=== PATIENT | female | born 1955 | race Caucasian/White ===

== ENCOUNTER 2017-05-12 16:29 | Inpatient (IN) | payer OTHER, MEDICARE ==
[2017-05-12 16:51] VITALS: BMI 30.4
[2017-05-13] MEDS: Insulin Lispro (humaLOG) 100 Units/ml Inj SC SCH ×4 (06:46→21:12)
[2017-05-13] MEDS: Pantoprazole 40 mg EC Tab PO SCH (06:53)
[2017-05-13] MEDS: Levothyroxine 112 MCG TAB PO SCH (06:58)
[2017-05-13] MEDS: Cholecalciferol 1,000 INTLU TAB PO SCH (08:13)
[2017-05-13] MEDS: Apap-Butalbital-Caffeine 325-50-40mg Tab PO PRN ×2 (08:13→18:20)
[2017-05-13] MEDS ORDERED: CALCIUM CARBONATE 600 MG PO SCH (09:00)
--- NOTE | 2017-05-13 09:25 | CP.PCM.HP ---
History of Present Illness - History of Present Illness History of Present Illness: 61 yo ,f, PMhx/o HTN, DM2,Hypothyroidism presents to [facility] [place] [facility] for AMS. Patient's daughter reports that she first noticed that her mother was confused and disoriented when she tried to wake her up at 9pm on the evening of admission. Patient works nights at [employer] and was due to work a shift on night of admission. As per daughter, patient's coworker had informed her that the patient was extremely "sleepy" the night prior at work and could not stay awake. Patient had also complained of some dizziness today and a headache a few days ago. Complete ROS and HPI limited due to patient's condition. On admission.CT head showed mixed density acute on subacute right convexity subdural hematoma measuring 1.7 cm with subfalcine herniation and [id number] midline shift. There is mild uncal herniation. There is entrapment of right lateral ventricle and dilatation of left lateral ventricle. Neurosurgery was contacted and the patient underwent emergent craniectomy and evacuation of the subdural hematoma, in which patient tolerated well. Neurology was also consulted and followed patient during hospital course. Patient was placed on Keppra for seizure prophylaxis. Pt transferred to [facility] for PT. Today POD #6 . Patient seen and examined with attending Dr Aniceto arriola. Patient reports feeling weel with occs headache controlled with meds. AAOx3. Denies fever, nausea, vomiting, abd pain, blurry vision, weakness, numbness. PMD: Dr. 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; no drug/ alcohol abuse Meds: pls see chart ALL: denies Present on Admission - Present on Admission Any Indicators Present on Admission: No History of DVT/PE: No History of Uncontrolled Diabetes: No Review of Systems - Neurological Neurological: Headaches Past Patient History - Infectious Disease Hx of Infectious Diseases: None - Past Medical History & Family History Past Medical History?: Yes - Past Social History Smoking Status: Heavy Smoker > 10 Cigarettes Daily - CARDIAC Hx Cardiac Disorders: Yes (ANGINA) Hx Congestive Heart Failure: No Hx Hypertension: Yes - PULMONARY Hx Chronic Obstructive Pulmonary Disease (COPD): No - NEUROLOGICAL Hx Neurological Disorder: No Hx Seizures: No Other/Comment: h/o subdural hematoma - HEENT Hx HEENT Problems: No - RENAL Hx Chronic Kidney Disease: No - ENDOCRINE/METABOLIC Hx Diabetes Mellitus Type 2: Yes Hx Hypothyroidism: Yes (THYROIDECTOMY) - HEMATOLOGICAL/ONCOLOGICAL Hx AIDS: No Hx Human Immunodeficiency Virus (HIV): No - INTEGUMENTARY Hx Dermatological Problems: No - MUSCULOSKELETAL/RHEUMATOLOGICAL Hx Arthritis: Yes (shoulder) Hx Falls: Yes - GASTROINTESTINAL Hx Gastrointestinal Disorders: Yes (HEMORRHOIDS?) - GENITOURINARY/GYNECOLOGICAL Hx Genitourinary Disorders: Yes (2 C/S) - PSYCHIATRIC Hx Psychophysiologic Disorder: Yes (SOCIAL DRINKING AND SMOKES CIGARETTES) Hx Substance Use: No - SURGICAL HISTORY Hx Surgeries: Yes (CS X 2,THYROIDECTMY) Hx Cardiac Catheterization: No Hx Cholecystectomy: Yes Other/Comment: 05/07/2017 - Craniotomy and evacuation of right. subdural hematoma. - ANESTHESIA Hx Anesthesia: Yes Hx Anesthesia Reactions: No Hx Malignant Hyperthermia: No Meds Allergies/Adverse Reactions: Allergies Allergy/AdvReac Type Severity Reaction Status Date / Time No Known Allergies Allergy Verified 05/12/17 23:17 Physical Exam - Constitutional Appears: Well, Non-toxic, No Acute Distress - Head Exam Head Exam: ATRAUMATIC - Eye Exam Eye Exam: Normal appearance Additional comments: normal vision acuity - ENT Exam ENT Exam: Mucous Membranes Moist - Neck Exam Neck exam: Positive for: Normal Inspection - Respiratory Exam Respiratory Exam: Clear to Auscultation Bilateral. absent: Rales, Rhonchi, Wheezes - Cardiovascular Exam Cardiovascular Exam: REGULAR RHYTHM, +S1, +S2 - GI/Abdominal Exam GI & Abdominal Exam: Normal Bowel Sounds, Soft. absent: Guarding, Tenderness - Extremities Exam Extremities exam: Positive for: normal inspection. Negative for: pedal edema - Back Exam Back exam: NORMAL INSPECTION - Neurological Exam Neurological exam: Alert, Oriented x3 - Psychiatric Exam Psychiatric exam: Normal Affect, Normal Mood - Skin Skin Exam: Intact Results - Vital Signs Recent Vital Signs: Last Vital Signs Temp 97.5 F L 05/12/17 22:20 Pulse 71 05/13/17 01:35 Resp 20 05/13/17 01:35 BP 130/71 05/12/17 22:20 Pulse Ox 95 05/13/17 01:35 - Labs Labs: Laboratory Results - last 24 hr 05/13/17 06:15 POC Glucose (mg/dL) 101 Assessment & Plan - Assessment and Plan (Free Text) Plan: Assessment Plan 61 yo ,f, PMhx/o HTN, DM2,Hypothyroidism admitted for right subdural hematoma s/ p s/p craniotomy POD #6 transferred to Acute Rehab for PT 1) Right Subdural Hematoma -s/p craniotomy for right SDH POD #6 doing well, minimal deficits on examination. + functional deficits will PT/OT to continue to help increase functional independence Team conference for d/c planning Pain: controlled Vascular: no evidence of DVT GI: No evidence of constipation or diarrhea -c/w keppra 2) HTN controlled 3) DM Controlled SSI 4) Hypothyroidism -c/w levothryroxin 5) DVT Prophylaxis -scd
--- NOTE | 2017-05-13 09:30 | CP.PCM.CON ---
History of Present Illness - History of Present Illness History of Present Illness: Dr Disla PMR consultation on Jackie Cleveland, born 1955, who has been admitted to [facility] acute rehab following a right SDH with evacuation. Post op doing well. Review of Systems - Constitutional Constitutional: absent: Chills, Excessive Sweating, Headache - EENT Eyes: absent: Change in Vision Ears: absent: Decreased Hearing Nose/Mouth/Throat: absent: Nasal Congestion - Cardiovascular Cardiovascular: absent: Chest Pain - Respiratory Respiratory: absent: Dyspnea - Gastrointestinal Gastrointestinal: absent: Abdominal Pain - Musculoskeletal Musculoskeletal: absent: Arthralgias, Back Pain - Integumentary Integumentary: absent: Bleeding Lesions - Neurological Neurological: absent: Abnormal Movements, Dizziness - Psychiatric Psychiatric: absent: Anxiety Past Patient History - Infectious Disease Hx of Infectious Diseases: None - Past Medical History & Family History Past Medical History?: Yes - Past Social History Smoking Status: Heavy Smoker > 10 Cigarettes Daily Alcohol: None Drugs: Denies Home Situation {Lives}: With Family - CARDIAC Hx Cardiac Disorders: Yes (ANGINA) Hx Congestive Heart Failure: No Hx Hypertension: Yes - PULMONARY Hx Chronic Obstructive Pulmonary Disease (COPD): No - NEUROLOGICAL Hx Neurological Disorder: No Hx Seizures: No Other/Comment: h/o subdural hematoma - HEENT Hx HEENT Problems: No - RENAL Hx Chronic Kidney Disease: No - ENDOCRINE/METABOLIC Hx Diabetes Mellitus Type 2: Yes Hx Hypothyroidism: Yes (THYROIDECTOMY) - HEMATOLOGICAL/ONCOLOGICAL Hx AIDS: No Hx Human Immunodeficiency Virus (HIV): No - INTEGUMENTARY Hx Dermatological Problems: No - MUSCULOSKELETAL/RHEUMATOLOGICAL Hx Arthritis: Yes (shoulder) Hx Falls: Yes - GASTROINTESTINAL Hx Gastrointestinal Disorders: Yes (HEMORRHOIDS?) - GENITOURINARY/GYNECOLOGICAL Hx Genitourinary Disorders: Yes (2 C/S) - PSYCHIATRIC Hx Psychophysiologic Disorder: Yes (SOCIAL DRINKING AND SMOKES CIGARETTES) Hx Substance Use: No - SURGICAL HISTORY Hx Surgeries: Yes (CS X 2,THYROIDECTMY) Hx Cardiac Catheterization: No Hx Cholecystectomy: Yes Other/Comment: 05/07/2017 - Craniotomy and evacuation of right. subdural hematoma. - ANESTHESIA Hx Anesthesia: Yes Hx Anesthesia Reactions: No Hx Malignant Hyperthermia: No Meds Allergies/Adverse Reactions: Allergies Allergy/AdvReac Type Severity Reaction Status Date / Time No Known Allergies Allergy Verified 05/12/17 23:17 - Medications Medications: Current Medications Acetaminophen/Butalbital/Caffeine (Fioricet) 1 tab PO Q4H PRN PRN Reason: Headache Last Admin: 05/13/17 08:13 Dose: 1 tab Calcium Carbonate (Oscal) 500 mg PO BID [facility] Cholecalciferol (Vitamin D) 2,000 intlu PO DAILY [facility] Last Admin: 05/13/17 08:13 Dose: 2,000 intlu Diphenhydramine HCl (Benadryl) 25 mg PO HS PRN PRN Reason: Other Last Admin: 05/13/17 01:27 Dose: 25 mg Insulin Human Lispro (Humalog) 0 units SC ACHS [facility] PRN Reason: Protocol Last Admin: 05/13/17 06:46 Dose: Not Given Levetiracetam (Keppra) 500 mg PO Q12 [facility] Last Admin: 05/13/17 08:15 Dose: 500 mg Levothyroxine Sodium (Synthroid) 112 mcg PO 0600 [facility] Last Admin: 05/13/17 06:58 Dose: 112 mcg Pantoprazole Sodium (Protonix Ec Tab) 40 mg PO 0600 [facility] Last Admin: 05/13/17 06:53 Dose: 40 mg Physical Exam - Constitutional Appears: Non-toxic, No Acute Distress - Head Exam Head Exam: absent: ATRAUMATIC (has right frontal staple line) - Eye Exam Eye Exam: EOMI - ENT Exam ENT Exam: Mucous Membranes Moist - Respiratory Exam Respiratory Exam: NORMAL BREATHING PATTERN. absent: Chest Wall Tenderness - Cardiovascular Exam Cardiovascular Exam: REGULAR RHYTHM - GI/Abdominal Exam GI & Abdominal Exam: absent: Distended - Extremities Exam Extremities exam: Negative for: calf tenderness, pedal edema - Neurological Exam Neurological exam: Alert, CN II-XII Intact, Oriented x3 - Psychiatric Exam Psychiatric exam: Normal Affect, Normal Mood Results - Vital Signs Recent Vital Signs: Last Vital Signs Temp 97.5 F L 05/12/17 22:20 Pulse 71 05/13/17 01:35 Resp 20 05/13/17 01:35 BP 130/71 05/12/17 22:20 Pulse Ox 95 05/13/17 01:35 - Labs Labs: Laboratory Results - last 24 hr 05/13/17 06:15 POC Glucose (mg/dL) 101 Assessment & Plan - Assessment and Plan (Free Text) Assessment: s/p craniotomy for right SDH doing well, minimal deficits on examination. + functional deficits will PT/OT to continue to help increase functional independence Team conference for d/c planning Pain: controlled Vascular: no evidence of DVT GI: No evidence of constipation or diarrhea Patient is an excellent acute rehabilitation candidate and will have focused pain management, wound care, PT, OT and recreational therapy to help facilitate a safe and appropriate d/c plan impairment code 01.1
--- NOTE | 2017-05-13 09:32 | PCM.OPOC ---
Physiatry Overall Plan of Care - Overall Plan of Care Estimated Length of Stay in Weeks: 1 Rehab Impairment: Mobility, Gait, Balance Etiologic Diagnosis: Cerebrovascular Accident Rehab/Medical Prognosis: Good - Anticipated Interventions Physical Therapy:: Yes Occupational Therapy:: Yes Speech Therapy:: No Recreational Therapy:: Yes - Therapy Goals Bed Mobility: Independent Ambulation: Independent Functional Positional Changes:: Independent - Discharge Plan Discharge Destination: Home
[2017-05-14] MEDS: Apap-Butalbital-Caffeine 325-50-40mg Tab PO PRN ×2 (00:18→21:15)
[2017-05-14] MEDS: Pantoprazole 40 mg EC Tab PO SCH (06:18)
[2017-05-14] MEDS: Levothyroxine 112 MCG TAB PO SCH (06:18)
[2017-05-14] MEDS: Insulin Lispro (humaLOG) 100 Units/ml Inj SC SCH ×4 (06:35→21:20)
[2017-05-14] MEDS: Cholecalciferol 1,000 INTLU TAB PO SCH (09:00)
--- NOTE | 2017-05-14 09:46 | CP.PCM.PN ---
Subjective - Date & Time of Evaluation Date of Evaluation: 05/14/17 Time of Evaluation: 07:50 - Subjective Subjective: Patient seen and examined with Dr Aniceto arriola. Today POD #6, in Acute rehab day #2 . Patient reports feeling well and improving on PT. AAOx3. Denies fever,headache, nausea, vomiting, abd pain, blurry vision, weakness, numbness. Objective - Vital Signs/Intake and Output Vital Signs (last 24 hours): Temp Pulse Resp BP Pulse Ox 96.4 F L 75 20 111/66 97 05/13/17 20:17 05/14/17 00:18 05/14/17 00:18 05/14/17 00:18 05/13/17 20:17 - Medications Medications: Current Medications Acetaminophen/Butalbital/Caffeine (Fioricet) 1 tab PO Q4H PRN PRN Reason: Headache Last Admin: 05/14/17 00:18 Dose: 1 tab Calcium Carbonate (Oscal) 500 mg PO BID [facility] Last Admin: 05/14/17 09:16 Dose: 500 mg Cholecalciferol (Vitamin D) 2,000 intlu PO DAILY [facility] Last Admin: 05/14/17 09:00 Dose: 2,000 intlu Diphenhydramine HCl (Benadryl) 25 mg PO HS PRN PRN Reason: Other Last Admin: 05/13/17 01:27 Dose: 25 mg Insulin Human Lispro (Humalog) 0 units SC ACHS [facility] PRN Reason: Protocol Last Admin: 05/14/17 06:35 Dose: Not Given Levetiracetam (Keppra) 500 mg PO Q12 [facility] Last Admin: 05/14/17 09:00 Dose: 500 mg Levothyroxine Sodium (Synthroid) 112 mcg PO 0600 [facility] Last Admin: 05/14/17 06:18 Dose: 112 mcg Pantoprazole Sodium (Protonix Ec Tab) 40 mg PO 0600 [facility] Last Admin: 05/14/17 06:18 Dose: 40 mg - Constitutional Appears: Non-toxic, No Acute Distress - Head Exam Head Exam: NORMOCEPHALIC Additional comments: Right temporo occipital surgical incision C/D/I with metallic daryl aprox 15 cm - Eye Exam Eye Exam: Normal appearance - ENT Exam ENT Exam: Normal Exam - Neck Exam Neck Exam: Normal Inspection - Respiratory Exam Respiratory Exam: Clear to Ausculation Bilateral. absent: Rales, Rhonchi, Wheezes, Stridor - Cardiovascular Exam Cardiovascular Exam: REGULAR RHYTHM, +S1, +S2 - GI/Abdominal Exam GI & Abdominal Exam: Soft, Normal Bowel Sounds. absent: Guarding, Tenderness - Extremities Exam Extremities Exam: Normal Inspection. absent: Calf Tenderness - Back Exam Back Exam: NORMAL INSPECTION - Neurological Exam Neurological Exam: Alert, Awake, Oriented x3 - Psychiatric Exam Psychiatric exam: Normal Affect, Normal Mood - Skin Skin Exam: Intact, Normal Color Assessment and Plan - Assessment and Plan (Free Text) Plan: Assessment Plan 61 yo ,f, PMhx/o HTN, DM2,Hypothyroidism admitted for right subdural hematoma s/ p s/p craniotomy POD #6 transferred to Acute Rehab for PT 1) Right Subdural Hematoma -s/p craniotomy for right SDH POD #7 doing well, minimal deficits on examination. + functional deficits will PT/OT to continue to help increase functional independence Team conference for d/c planning Pain: controlled Vascular: no evidence of DVT GI: No evidence of constipation or diarrhea -c/w keppra 2) HTN controlled 3) DM Controlled SSI 4) Hypothyroidism -c/w levothryroxin 5) DVT Prophylaxis -scd
--- NOTE | 2017-05-14 18:06 | CP.PCM.PN ---
Subjective - Date & Time of Evaluation Date of Evaluation: 05/14/17 Time of Evaluation: 18:05 - Subjective Subjective: Patient seen in room daryl are CDI no headaches or visual changes feels very happy with PT and progress continue current care Objective - Vital Signs/Intake and Output Vital Signs (last 24 hours): Temp Pulse Resp BP Pulse Ox 97 F L 79 20 128/68 97 05/14/17 08:00 05/14/17 08:00 05/14/17 08:00 05/14/17 08:00 05/14/17 08:00 - Medications Medications: Current Medications Acetaminophen/Butalbital/Caffeine (Fioricet) 1 tab PO Q4H PRN PRN Reason: Headache Last Admin: 05/14/17 00:18 Dose: 1 tab Calcium Carbonate (Oscal) 500 mg PO BID [facility] Last Admin: 05/14/17 17:46 Dose: 500 mg Cholecalciferol (Vitamin D) 2,000 intlu PO DAILY [facility] Last Admin: 05/14/17 09:00 Dose: 2,000 intlu Diphenhydramine HCl (Benadryl) 25 mg PO HS PRN PRN Reason: Other Last Admin: 05/13/17 01:27 Dose: 25 mg Insulin Human Lispro (Humalog) 0 units SC ACHS [facility] PRN Reason: Protocol Last Admin: 05/14/17 16:22 Dose: Not Given Levetiracetam (Keppra) 500 mg PO Q12 [facility] Last Admin: 05/14/17 09:00 Dose: 500 mg Levothyroxine Sodium (Synthroid) 112 mcg PO 0600 [facility] Last Admin: 05/14/17 06:18 Dose: 112 mcg Pantoprazole Sodium (Protonix Ec Tab) 40 mg PO 0600 [facility] Last Admin: 05/14/17 06:18 Dose: 40 mg
[2017-05-15] MEDS: Levothyroxine 112 MCG TAB PO SCH (06:44)
[2017-05-15] MEDS: Pantoprazole 40 mg EC Tab PO SCH (06:44)
[2017-05-15] MEDS: Insulin Lispro (humaLOG) 100 Units/ml Inj SC SCH ×4 (06:58→21:00)
--- NOTE | 2017-05-15 09:08 | CP.PCM.PN ---
Subjective - Date & Time of Evaluation Date of Evaluation: 05/15/17 Time of Evaluation: 07:50 - Subjective Subjective: Patient seen and examined with Dr Aniceto arriola. Today POD #7, in Acute rehab day #3. Patient reports feeling well and improving on PT. AAOx3. Denies fever,headache, nausea, vomiting, abd pain, blurry vision, weakness, numbness. Objective - Vital Signs/Intake and Output Vital Signs (last 24 hours): Temp Pulse Resp BP Pulse Ox 97.8 F 78 20 118/55 L 99 05/15/17 09:05 05/15/17 09:05 05/15/17 09:05 05/15/17 09:05 05/15/17 09:05 - Medications Medications: Current Medications Acetaminophen/Butalbital/Caffeine (Fioricet) 1 tab PO Q4H PRN PRN Reason: Headache Last Admin: 05/14/17 21:15 Dose: 1 tab Calcium Carbonate (Oscal) 500 mg PO BID [facility] Last Admin: 05/14/17 17:46 Dose: 500 mg Cholecalciferol (Vitamin D) 2,000 intlu PO DAILY [facility] Last Admin: 05/14/17 09:00 Dose: 2,000 intlu Diphenhydramine HCl (Benadryl) 25 mg PO HS PRN PRN Reason: Other Last Admin: 05/14/17 23:07 Dose: 25 mg Insulin Human Lispro (Humalog) 0 units SC ACHS [facility] PRN Reason: Protocol Last Admin: 05/15/17 06:58 Dose: Not Given Levetiracetam (Keppra) 500 mg PO Q12 [facility] Last Admin: 05/14/17 21:07 Dose: 500 mg Levothyroxine Sodium (Synthroid) 112 mcg PO 0600 [facility] Last Admin: 05/15/17 06:44 Dose: 112 mcg Pantoprazole Sodium (Protonix Ec Tab) 40 mg PO 0600 [facility] Last Admin: 05/15/17 06:44 Dose: 40 mg - Constitutional Appears: Non-toxic, No Acute Distress - Head Exam Head Exam: ATRAUMATIC Additional comments: Right temporo occipital surgical incision C/D/I with metallic daryl aprox 15 cm - Eye Exam Eye Exam: Normal appearance - ENT Exam ENT Exam: Normal Exam - Neck Exam Neck Exam: Normal Inspection - Respiratory Exam Respiratory Exam: Clear to Ausculation Bilateral. absent: Rales, Rhonchi, Stridor - Cardiovascular Exam Cardiovascular Exam: REGULAR RHYTHM. absent: +S1, +S2 - GI/Abdominal Exam GI & Abdominal Exam: Soft, Normal Bowel Sounds. absent: Tenderness - Extremities Exam Extremities Exam: Full ROM, Normal Inspection, Pedal Edema - Neurological Exam Neurological Exam: Alert, Awake, Oriented x3 Neuro motor strength exam: Left Upper Extremity: 5, Right Upper Extremity: 5, Left Lower Extremity: 5, Right Lower Extremity: 5 - Psychiatric Exam Psychiatric exam: Normal Affect, Normal Mood - Skin Skin Exam: Normal Color Assessment and Plan - Assessment and Plan (Free Text) Plan: Assessment Plan 61 yo ,f, PMhx/o HTN, DM2,Hypothyroidism admitted for right subdural hematoma s/ p s/p craniotomy POD #6 transferred to Acute Rehab for PT 1) Right Subdural Hematoma -s/p craniotomy for right SDH POD #7 doing well, minimal deficits on examination. + functional deficits will PT/OT to continue to help increase functional independence Team conference for d/c planning Pain: controlled Vascular: no evidence of DVT GI: No evidence of constipation or diarrhea -c/w keppra 2) HTN controlled 3) DM Controlled SSI 4) Hypothyroidism -c/w levothryroxin 5) DVT Prophylaxis -scd
[2017-05-15] MEDS: Cholecalciferol 1,000 INTLU TAB PO SCH (09:25)
[2017-05-15] MEDS: Apap-Butalbital-Caffeine 325-50-40mg Tab PO PRN (20:40)
[2017-05-16] MEDS: Pantoprazole 40 mg EC Tab PO SCH (06:49)
[2017-05-16] MEDS: Levothyroxine 112 MCG TAB PO SCH (06:49)
[2017-05-16] MEDS: Insulin Lispro (humaLOG) 100 Units/ml Inj SC SCH ×5 (06:53→21:23)
[2017-05-16 07:55] VITALS: RESP 20
[2017-05-16] MEDS: Cholecalciferol 1,000 INTLU TAB PO SCH (08:29)
--- NOTE | 2017-05-16 10:05 | CP.PCM.PN ---
Subjective - Date & Time of Evaluation Date of Evaluation: 05/16/17 Time of Evaluation: 10:04 - Subjective Subjective: Patient seen in room denies cp/sob occasional headaches, but they don't last and do respond to medication. continue current care Objective - Vital Signs/Intake and Output Vital Signs (last 24 hours): Temp Pulse Resp BP Pulse Ox 97.2 F L 64 20 122/68 97 05/16/17 07:54 05/16/17 07:54 05/16/17 07:54 05/16/17 07:54 05/16/17 07:54 - Medications Medications: Current Medications Acetaminophen/Butalbital/Caffeine (Fioricet) 1 tab PO Q4H PRN PRN Reason: Headache Last Admin: 05/15/17 20:40 Dose: 1 tab Calcium Carbonate (Oscal) 500 mg PO BID [facility] Last Admin: 05/16/17 08:29 Dose: 500 mg Cholecalciferol (Vitamin D) 2,000 intlu PO DAILY [facility] Last Admin: 05/16/17 08:29 Dose: 2,000 intlu Diphenhydramine HCl (Benadryl) 25 mg PO HS PRN PRN Reason: Other Last Admin: 05/15/17 23:35 Dose: 25 mg Insulin Human Lispro (Humalog) 0 units SC ACHS [facility] PRN Reason: Protocol Last Admin: 05/16/17 06:53 Dose: Not Given Levetiracetam (Keppra) 500 mg PO Q12 [facility] Last Admin: 05/16/17 08:28 Dose: 500 mg Levothyroxine Sodium (Synthroid) 112 mcg PO 0600 [facility] Last Admin: 05/16/17 06:49 Dose: 112 mcg Pantoprazole Sodium (Protonix Ec Tab) 40 mg PO 0600 [facility] Last Admin: 05/16/17 06:49 Dose: 40 mg
--- NOTE | 2017-05-16 12:12 | PN ---
DATE: 05/16/2017 SUBJECTIVE: The patient seen and examined. Interim events noted. *------*feels okay. Denies any specific complaints. PHYSICAL EXAMINATION: GENERAL: The patient is in no acute distress. VITAL SIGNS: Stable. HEART: S1 and S2, normal and regular. LUNGS: Good bilateral air entry. ABDOMEN: Soft, nontender. EXTREMITIES: No edema. No calf swelling. No tenderness. No acute ischemia. CENTRAL NERVOUS SYSTEM: Essentially unchanged. DIAGNOSTIC DATA: Available diagnostic data reviewed. ASSESSMENT AND PLAN: Overall, the patient's general medical condition is stable. Plan as ordered. Jose C Moreland MD
[2017-05-16] MEDS ORDERED: Apap-Butalbital-Caffeine 325-50-40mg Tab PO STA (15:22)
[2017-05-17] MEDS: Insulin Lispro (humaLOG) 100 Units/ml Inj SC SCH ×2 (06:38→12:01)
[2017-05-17] MEDS: Pantoprazole 40 mg EC Tab PO SCH (06:41)
[2017-05-17] MEDS: Levothyroxine 112 MCG TAB PO SCH (06:41)
[2017-05-17 08:36] VITALS: BP 130/61; PULSE 71; TEMP 97.2; O2SAT 100
[2017-05-17] MEDS: Cholecalciferol 1,000 INTLU TAB PO SCH (08:42)
[2017-05-17] MEDS ORDERED: Pneumococcal 23-Valent Vaccine IM ONE (11:49)
[2017-05-17 12:16] LABS: BASO # 0.1 K/uL (0.0-0.2); EOS # 0.2 K/uL (0.0-0.7); EOS % 2.6 % (0.0-4.0); HEMATOCRIT 36.2 % (34.0-47.0); LYMPH # 2.4 K/uL (1.0-4.3); LYMPH % 26.5 % (20.0-40.0); MEAN CELL VOLUME 68.1 fl (81.0-99.0); MEAN CORPUSCULAR HGB CONC 30.9 g/dL (33.0-37.0); MEAN PLATELET VOLUME 8.1 fl (7.2-11.7); MONO # 0.7 K/uL (0.0-0.8); MONO % 8.1 % (0.0-10.0); NEUT # 5.5 K/uL (1.8-7.0); NEUT % 61.8 % (50.0-75.0); NRBC % 0.2 % (0.0-0.0); RED CELL DISTRIBUTION WIDTH 14.9 % (11.5-14.5)
[2017-05-17 12:18] LABS: ALB/GLOB RATIO 1.3 (1.0-2.1); ALKALINE PHOSPHATASE 67 U/L (38-126); ALT/SGPT 63 U/L (9-52); AST/SGOT 36 U/L (14-36); BILIRUBIN,TOTAL 0.2 mg/dl (0.2-1.3); BLOOD UREA NITROGEN 13 mg/dl (7-17); CALCIUM 7.4 mg/dL (8.4-10.2); CARBON DIOXIDE 30 mmol/L (22-30); CHLORIDE 103 mmol/L (98-107); GFR AFRICAN-AMERICAN > 60; GLUCOSE,RANDOM 106 mg/dL (65-105); POTASSIUM 4.2 MMOL/L (3.6-5.0); SODIUM 143 mmol/l (132-148); TOTAL PROTEIN 7.7 G/DL (6.3-8.2)
[2017-05-17 12:48] LABS: THYROID STIMULATING HORMONE 3.22 mIU/ML (0.46-4.68)
== END 2017-05-17 15:00 | disposition home or self-care (01) | DRG 66 ==
PROVIDERS: ADMIT Family Medicine; ATTEND Family Medicine
DX: I62.01 Nontraumatic acute subdural hemorrhage (principal); E11.9 Type 2 diabetes mellitus without complications; I10 Essential (primary) hypertension; E89.0 Postprocedural hypothyroidism; F17.210 Nicotine dependence, cigarettes, uncomplicated; Z90.49 Acquired absence of other specified parts of digestive tract